=== PATIENT | male | born 1940 | race Caucasian/White ===

== ENCOUNTER → 2016-05-02 12:57 | Outpatient (CLI) | payer MEDICARE | END | disposition home or self-care (01) | LOC: D.US 04-30 13:30 | DX: N18.3 Chronic kidney disease, stage 3 (moderate) (principal); I48.2 Chronic atrial fibrillation; E78.5 Hyperlipidemia, unspecified; E79.0 Hyperuricemia without signs of inflammatory arthritis and tophaceous disease ==